=== PATIENT | female | born 1970 | race Caucasian/White ===

== ENCOUNTER 2025-06-18 11:32 | Outpatient (CLI) | payer MEDICAID | END 2025-06-18 11:33 | disposition home or self-care (01) | LOC: CT 11:32 | PROVIDERS: ATTEND Otolaryngology Plastic Surgery within the Head & Neck | DX: G50.1 Atypical facial pain (principal); J34.2 Deviated nasal septum; S02.2XXA Fracture of nasal bones, initial encounter for closed fracture ==